=== PATIENT | female | born 1995 | race Two or more races ===

== ENCOUNTER 2017-10-15 01:12 | Emergency (ER) | payer OTHER ==
[~2017-10-15] VITALS: Ht 160 cm; Wt 68.2 kg
[2017-10-15 01:13] VITALS: BP 136/98
[2017-10-15] MEDS ORDERED: DIPHENHYDRAMINE 25 MG CAPSULE ONE (01:42)
[2017-10-15] MEDS ORDERED: DIPHENHYDRAMINE 25 MG CAPSULE PO ONE (02:00)
== END 2017-10-15 02:22 | disposition home or self-care (01) ==
LOC: ED 02:16
DX: F41.1 Generalized anxiety disorder (principal); R06.4 Hyperventilation
CPT/HCPCS: 99284; Q0163